=== PATIENT | male | born 1980 | race Caucasian/White ===

== ENCOUNTER 2019-11-24 22:21 | Emergency (ER) | payer MEDICAID ==
[~2019-11-24] VITALS: Ht 175.3 cm; Wt 63.6 kg
[2019-11-24 22:28] VITALS: Ht 175.3 cm; Wt 63.6 kg
[2019-11-24] MEDS ORDERED: PERMETHRIN60 GM TOPICAL (22:33)
[2019-11-24] MEDS ORDERED: ATARAX 25 MG TA25 MG PO (22:33)
[2019-11-24 23:28] VITALS: BP 132/89
== END 2019-11-24 23:28 | disposition home or self-care (01) ==
LOC: D.ER 22:21
DX: B86 Scabies (principal)